=== PATIENT | female | born 1940 | race Caucasian/White ===

== ENCOUNTER 2017-05-29 14:10 | Emergency (ER) | payer MEDICARE ==
--- NOTE | 2017-05-29 16:09 | RAD ---
INDICATION: Left knee pain. Fall. COMPARISON: None TECHNIQUE: AP, lateral, and oblique views were obtained. FINDINGS: The bony structures, joint spaces, and soft tissues are normal for age. IMPRESSION: NO ACUTE BONY FINDINGS.
--- NOTE | 2017-05-29 16:13 | RAD ---
Indication: LEFT knee and ankle pain and edema post fall. Comparison: No relevant prior exams available on the [facility] for comparison. Technique: AP, mortise, and lateral views LEFT ankle. REPORT AND IMPRESSION: Diffuse soft tissue edema most prominent over the lateral malleolus. The ankle mortise is congruent. Negative for fracture.
[2017-05-29 16:17] VITALS: BP 119/66
--- NOTE | 2017-05-29 16:59 | UC ---
Oziel Hawley Tecjoon, scribed for Juve Tran MD on 05/29/17 at 1549 . Lower Extremity/Ankle HPI - HPI Summary HPI Summary: This patient is a 76 year old female presenting to [facility] with a chief complaint of left knee and foot pain s/p a mechanical fall at approx. noon today. Patient states that her legs gave out while she was going down the stairs. Patient states her leg twisted during the fall. Patient denies LOC.Patient states her leg is still load-bearing. Patient denies any loss of function or numbness in extremities. The pain is described as throbbing. The pain is rated 2/10 in severity. Symptoms aggravated by walking. Symptoms alleviated by OTC medication. 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 Patient denies hip pain, head pain, neck pain, back pain. - History of Current Complaint Chief Complaint: UCLowerExtremity Stated Complaint: FOOT AND KNEE INJURY Time Seen by Provider: 05/29/17 15:29 Hx Obtained From: Patient Onset/Duration: Sudden Onset, Lasting Hours - 3, Still Present Severity Initially: Moderate Severity Currently: Mild Pain Intensity: 2 Pain Scale Used: 0-10 Numeric Aggravating Factor(s): Standing, Ambulation Alleviating Factor(s): OTC Meds Able to Bear Weight: Yes Related History: Other - mechanical fall - Allergies/Home Medications Allergies/Adverse Reactions: Allergies Allergy/AdvReac Type Severity Reaction Status Date / Time Kiwi Extract Allergy Swelling Verified 05/29/17 14:30 Of Face,Lips,& Throat Latex Allergy Swelling Verified 05/29/17 14:30 Of Face,Lips,& Throat Shellfish Allergy Allergy See Comment Verified 05/29/17 14:30 Tree Nuts Allergy Swelling Verified 05/29/17 14:30 Of Face,Lips,& Throat Home Medications: Home Medications Ibuprofen [Ibuprofen 200 MG] 2 tab PO Q6HR PRN 05/29/17 [History Confirmed 05/29] Loratadine [Claritin 10 MG CAP] 1 tab PO DAILY 05/29/17 [History Confirmed 05/29] Lovastatin [Altoprev] 10 mg PO DAILY 05/29/17 [History Confirmed 05/29/17] PMH/Surg Hx/FS Hx/Imm Hx Previously Healthy: Yes Endocrine History: Other - negative: diabetes Other Endocrine History: . Cardiovascular History: Other - high cholesterol Other Cardiovascular History: . - Surgical History Surgical History: None - Family History Known Family History: Negative: Hypertension, Diabetes - Social History Alcohol Use: Daily Alcohol Amount: 1 glass wine daily Substance Use Type: None Smoking Status (MU): Never Smoked Tobacco Have You Smoked in the Last Year: No - Immunization History Most Recent Influenza Vaccination: 05/2017 Review of Systems Constitutional: Negative - fever Musculoskeletal: Negative - hip pain, back pain, Calf Tenderness, Other: - left knee, foot pain Neurological: Negative - neck pain, head pain All Other Systems Reviewed And Are Negative: Yes Physical Exam Triage Information Reviewed: Yes Vital Signs: Initial Vital Signs Temp 97.0 F 05/29/17 14:25 Pulse 90 05/29/17 14:25 Resp 16 05/29/17 14:25 BP 120/50 05/29/17 14:25 Pulse Ox 96 05/29/17 14:25 - Additional Comments General: well-appearing, no pain distress Skin: warm, color reflects adequate perfusion, dry Head: normal Eyes: EOMI, VIRAL ENT: normal Neck: supple, nontender Respiratory: CTA, breath sounds present Cardiovascular: RRR Abdomen: soft, nontender Bowel: present Extremities: Left ankle swelling and tenderness to palpation. Also dorsum of foot. Knee has good x-ray. Musculoskeletal: normal, strength/ROM intact Neurological: normal, sensory/motor intact, A&O x3 Psychological: affect/mood appropriate Diagnostics - Radiology Knee XR Xray Interpretation: No Acute Changes - IMPRESSION: NO ACUTE BONY FINDINGS. physician has reviewed this radiology report. Radiology Interpretation Completed By: Radiologist Ankle XR Xray Interpretation: Positive (See Comments) - IMPRESSION: Diffuse soft tissue edema most prominent over the lateral malleolus. The ankle mortise is congruent. Negative for fracture. physician has reviewed this radiology report. Radiology Interpretation Completed By: Radiologist Foot XR Xray Interpretation: No Acute Changes - IMPRESSION: NO ACUTE BONY FINDINGS. physician has reviewed this radiology report. Radiology Interpretation Completed By: Radiologist Lower Extremity Course/Dx - Course Course Of Treatment: NO FXR SEEN ON X-RAY. PAIN/SWELLING IS WORST IN THE MID FOOT. WILL TREAT WITH RICE, BENTON WRAP AND POST OP SHOE. F/U PMD IF NOT COMPLETELY IMPROVED, RETURN IF WORSE. - Differential Dx/Diagnosis Provider Diagnoses: LEFT KNEE, ANKLE AND FOOT STRAIN Discharge - Discharge Plan Condition: Stable Disposition: HOME Patient Education Materials: Ankle Sprain (ED), Knee Sprain (ED), Foot Sprain ( ED) Referrals: Keith Arizmendi MD [Primary Care Provider] - Additional Instructions: FOLLOW UP WITH YOUR DOCTOR. GET RECHECKED FOR ANY WORSENING OF YOUR CONDITION; CONTINUED OR WORSE PAIN OR QUESTIONS OR CONCERNS. The documentation as recorded by the Oziel leach Tecjoon accurately reflects the service I personally performed and the decisions made by , Juve Tran MD.
--- NOTE | 2017-06-02 15:13 | RAD ---
HISTORY: Left foot pain status post fall COMPARISONS: None VIEWS: 3, Frontal, lateral, and oblique views of the left foot, submitted for review on June 02, 2017 FINDINGS: BONE DENSITY: There is diffuse osteopenia. BONES: There is no displaced fracture. JOINTS: There is no arthropathy. ALIGNMENT: There is no dislocation. SOFT TISSUES: Unremarkable. OTHER FINDINGS: None. IMPRESSION: OSTEOPENIA. NO ACUTE OSSEOUS INJURY. IF SYMPTOMS PERSIST, RECOMMEND REPEAT IMAGING.
== END 2017-05-29 17:09 | disposition home or self-care (01) ==
LOC: UCEAST 14:10
DX: S96.912A Strain of unspecified muscle and tendon at ankle and foot level, left foot, initial encounter (principal); M25.562 Pain in left knee; M25.572 Pain in left ankle and joints of left foot; Z91.040 Latex allergy status; Z91.018 Allergy to other foods; Z91.013 Allergy to seafood; E78.00 Pure hypercholesterolemia, unspecified; Z79.899 Other long term (current) drug therapy; W10.9XXA Fall (on) (from) unspecified stairs and steps, initial encounter; Y92.9 Unspecified place or not applicable
CPT/HCPCS: 99213; G0463

== ENCOUNTER 2017-11-12 09:15 | Emergency (ER) | payer MEDICARE ==
[2017-11-12 09:27] VITALS: BP 108/57
--- NOTE | 2017-11-12 10:30 | UC ---
Edward Hawley Tenzin, scribed for Juve Tran MD on 11/12/17 at 0950 . Abdominal Pain Female HPI - HPI Summary HPI Summary: Pt is a 77 years old female presenting to the complaining of intense pain in her epigastrium this morning after having her breakfast. Pt rates the pain at 9/ 10 in severity during the onset. Currently at the she reports the pain is at 4/10 in severity and describes that the pain is diffuse around her abdomen. Pt reports that the epigastrium pain exacerbated after she took her dogs out to the garden. She noted that she experience diaphoresis, felt nauseous as if she is about to vomit, but did not vomit. She noted that she laid down and rested. Pt denies abnormal bowl movements, dysuria and blood in stools. She added she did notice that her bowl movements yesterday was loose. - History of Current Complaint Chief Complaint: UCAbdominalPain Stated Complaint: ABD PAIN Time Seen by Provider: 11/12/17 09:37 Hx Obtained From: Patient Onset/Duration: Still Present Severity Initially: Severe Severity Currently: Mild Pain Intensity: 1 Location: Epigastric Radiates: No Aggravating Factor(s): Nothing Alleviating Factor(s): Nothing Associated Signs and Symptoms: Positive: Diaphoresis, Nausea. Negative: Blood in Stool, Vomiting, Diarrhea Allergies/Adverse Reactions: Allergies Allergy/AdvReac Type Severity Reaction Status Date / Time kiwi Allergy Swelling Verified 11/12/17 09:28 Of Face,Lips,& Throat latex Allergy Swelling Verified 11/12/17 09:28 Of Face,Lips,& Throat shellfish derived Allergy See Comment Verified 11/12/17 09:28 Tree Nuts Allergy Swelling Verified 11/12/17 09:28 Of Face,Lips,& Throat PMH/Surg Hx/FS Hx/Imm Hx - Additional Past Medical History Additional PMH: NEGATIVE: CVA, AR - Surgical History Surgical History: None - Family History Known Family History: Negative: Hypertension, Diabetes - Social History Alcohol Use: Daily Alcohol Amount: 1 glass wine daily Substance Use Type: None Smoking Status (MU): Former Smoker Have You Smoked in the Last Year: No When Did the Patient Quit Smoking/Using Tobacco: in her late 20's - Immunization History Most Recent Influenza Vaccination: 05/2017 Review of Systems Constitutional: Other - diaphoresis Skin: Negative Eyes: Negative ENT: Negative Respiratory: Negative Cardiovascular: Negative Gastrointestinal: Abdominal Pain, Nausea Genitourinary: Negative Motor: Negative Neurovascular: Negative Musculoskeletal: Negative Neurological: Negative Psychological: Negative All Other Systems Reviewed And Are Negative: Yes - Comments Additional Review of Systems Comments: POSITIVE: EPIGASTRIUM PAIN, NAUSEOUS, DIAPHORESIS DENIES: VOMITING, DIARRHEA, DYSURIA, BLOOD IN STOOLS, ABNORMAL BOWEL MOVEMENTS Physical Exam - Summary Physical Exam Summary: General: well-appearing, mild and moderate distress Skin: warm, color reflects adequate perfusion, dry Head: normal Eyes: EOMI, VIRAL ENT: normal Neck: supple, nontender Respiratory: CTA, breath sounds present Cardiovascular: RRR Abdomen: Mild tenderness in epigastrium, Mild tympany in percussion Bowel: present Musculoskeletal: normal, strength/ROM intact Neurological: sensory/motor intact, A&O x3 Psychological: affect/mood appropriate Triage Information Reviewed: Yes Vital Signs: Initial Vital Signs Temp 97.0 F 11/12/17 09:22 Pulse 66 11/12/17 09:22 Resp 16 11/12/17 09:22 BP 108/57 11/12/17 09:22 Pulse Ox 98 11/12/17 09:22 Vital Signs Reviewed: Yes Abd Pain Female Course/Dx - Course Course Of Treatment: DISCUSSED NEED FOR TIMELY LABS DUE TO ACTIVE ABDOMINAL PAIN. PATIENT DENIES CHEST PAIN. PATIENT DECLINES AMBULANCE TRANSPORT; HER DAUGHTER WILL DRIVE HER TO THE ED. - Differential Dx/Diagnosis Provider Diagnoses: ABDOMINAL PAIN Discharge - Sign-Out/Discharge Documenting (check all that apply): Discharge/Admit/Transfer - Discharge Plan Condition: Stable Disposition: HOME Patient Education Materials: Acute Abdominal Pain (ED) Referrals: Keith Arizmendi MD [Primary Care Provider] - Additional Instructions: GO DIRECTLY TO THE EMERGENCY DEPARTMENT FOR FURTHER EVALUATION OF YOUR ABDOMINAL PAIN. - Billing Disposition and Condition Condition: STABLE Disposition: Home The documentation as recorded by the Edward leach Tenzin accurately reflects the service I personally performed and the decisions made by me, Juve Tran MD.
== END 2017-11-12 10:00 | disposition home or self-care (01) ==
LOC: UCEAST 09:15
DX: R10.13 Epigastric pain (principal); R61 Generalized hyperhidrosis; R11.0 Nausea; Z91.018 Allergy to other foods; Z91.040 Latex allergy status; Z87.891 Personal history of nicotine dependence
CPT/HCPCS: 99212; G0463

== ENCOUNTER 2017-11-12 10:22 | Inpatient (IN) | payer MEDICARE ==
[2017-11-12] MEDS ORDERED: NS 0.9% 1000 ML* 1,000 ML IV ONE (10:51)
[2017-11-12 11:13] LABS: ABS Basophils 0 10^3/ul (0-0.2); ABS Eosinophils 0.1 10^3/ul (0-0.6); ABS Lymphocytes 0.8 10^3/ul (1.0-4.8); ABS Monocytes 0.5 10^3/ul (0-0.8); ABS Nucleated RBC 0 10^3/ul; Eosinophil % 0.9 % (0-6); Hematocrit 38 % (35-47); Hemoglobin 13.2 g/dl (12.0-16.0); Lymphocyte % 9.5 % (25-47); Mean Corpuscular HGB Conc 35 g/dl (31-36); Mean Corpuscular Hemoglobin 34 pg (27-31); Mean Corpuscular Volume 98 fL (80-97); Mean Platelet Volume 7.7 um3 (7.4-10.4); Nucleated Red Blood Cells % 0; Platelet Count 219 10^3/ul (150-450); Red Blood Count 3.85 10^6/ul (4.00-5.40); Red Cell Distribution Width 13 % (10.5-15); White Blood Count 8.4 10^3/ul (3.5-10.8)
[2017-11-12 11:25] LABS: INR 0.96 (0.77-1.02)
[2017-11-12 11:32] LABS: EGFR Non-African American 66.5 (>60)
--- NOTE | 2017-11-12 11:48 | RAD ---
Indication: Intense abdominal pain this morning. Comparison: No relevant prior exams available on the [facility] for comparison. Technique: RIGHT upper quadrant ultrasound. Report: Appropriate direction flow documented in the portal and hepatic veins. 13.8 cm liver is normal in echogenicity. 0.8 x 0.7 x 0.9 cm well-circumscribed LEFT hepatic lobe cyst with lobular contour and minimal thin internal septation without concern. Negative for intrahepatic biliary dilatation. 1.7 mm common bile duct. Adequately distended gallbladder with 2 mm wall is remarkable for multiple small nonshadowing polypoid nodules along the wall measuring up to 0.5 cm maximum dimension. Negative for pericholecystic fluid or sonographic Loving's sign. Unremarkable well visualized pancreas. Negative for ascites. 10.2 x 3.9 x 4.3 cm RIGHT kidney is unremarkable. IMPRESSION: #. 0.5 cm maximum dimension probable cholesterol or inflammatory polyps. Gallbladder polyps 0.6 cm or smaller have extremely low risk of malignancy and typically do not warrant follow up. On occasion polyps may actually represent small gallstones adherent to the gallbladder wall at surgery.
--- NOTE | 2017-11-12 12:29 | RAD ---
INDICATION: Epigastric pain. COMPARISON: April 23, 2000 TECHNIQUE: Dual energy PA and routine lateral views of the chest were obtained. REPORT: Elevated lung volumes and mild prominence of interstitial markings without change. No focal pulmonary lesion, compelling alveolar consolidation, pleural effusion, pneumothorax. The heart, pulmonary vasculature, and mediastinal contours are unremarkable. Negative for free air beneath the diaphragm. IMPRESSION: Stigmata of obstructive lung disease. No acute pulmonary or cardiac process evident.
[2017-11-12 13:04] LABS: Urine Appearance Clear; Urine Blood Negative (Negative); Urine Color Straw; Urine Ketones Negative (Negative); Urine Protein Negative (Negative); Urine Specific Gravity 1.004 (1.010-1.030); Urine Urobilinogen Negative (Negative)
[2017-11-12] MEDS ORDERED: Iohexol 300* (CONTRAST) 10 ML SDV IV ONE (13:58)
--- NOTE | 2017-11-12 14:33 | RAD ---
INDICATION: Abdominal pain/appendicitis COMPARISON: Gallbladder sonogram same date TECHNIQUE: Axial source images were obtained from the hemidiaphragms to the symphysis pubis following administration of oral and intravenous contrast. 97 mL Omnipaque 300 was utilized. Coronal and sagittal reconstructed images were acquired. Lung bases: There is minor dependent atelectasis in the lung bases. Liver: The liver is normal in size. There are multiple subcentimeter hypodense right and left hepatic lobe lesions which are likely incidental cysts or hemangiomas. The earlier ultrasound reported a left hepatic cyst. There is no ductal dilatation. Gallbladder: There are no calcified gallstones. There is no evidence of wall thickening or pericholecystic fluid. May be mild hyperemia of the wall. There are presumed tiny polyps or adherent stones as also suggested at the time of the gallbladder sonography. Spleen: The spleen is normal in size. There are no masses. Pancreas: There is no focal pancreatic mass or ductal dilatation. Adrenal glands: There is no evidence of adrenal mass. Kidneys: The kidneys are normal in size and position. There are prompt nephrograms and there is prompt excretion bilaterally. There are no renal parenchymal masses. There is no evidence of nephrolithiasis. Adenopathy: There is no evidence of adenopathy by size criteria. Fluid collections: There are no free or localized fluid collections. Vessels:There are no significant atherosclerotic changes involving the aorta. There is no focal aneurysm. The iliac vessels are normal in caliber. The IVC appears normal. GI tract: There are no acute CT bowel findings. There is no obstruction. The stomach and small bowel appear normal. There are scattered diverticula of the sigmoid colon without CT findings of acute diverticulitis The cecum, ileocecal valve, and terminal ileum appear normal. The appendix is visualized and appear normal. Pelvic organs: The uterus and adnexa appear normal Bladder: There are no bladder masses. Abdominal and pelvic soft tissues: The extraperitoneal abdominal and pelvic soft tissues appear normal.. Osseous structures: There are no acute osseous findings. There is a scoliotic deformity. There is advanced degenerative disc disease about L2-L3 and L4-L5 with moderate degenerative disc disease at L3-L4 and L5-S1 Other: None IMPRESSION: 1. NO ACUTE CT FINDINGS. NO MASS OR INFLAMMATORY CHANGES. NORMAL APPENDIX. 2. PROBABLE HEPATIC CYSTS OR HEMANGIOMAS. 3. PROBABLE GALLBLADDER POLYPS. 4. SCATTERED DIVERTICULA WITHOUT CT FINDINGS OF ACUTE DIVERTICULITIS
--- NOTE | 2017-11-12 15:07 | ED ---
Maday Hawley Emily, scribed for Ciara Calabreseanuel on 11/12/17 at 1053 . Abdominal Pain/Female - HPI Summary HPI Summary: This patient is a 77 year old F presenting to [facility] accompanied by daughter with a chief complaint of intermittent upper abd pain after eating breakfast this morning. The patient rates the pain 1/10 in severity. Symptoms aggravated by nothing. Symptoms alleviated by nothing. Patient reports skin diaphoresis and nausea. Patient denies vomiting and CP. - History of Current Complaint Chief Complaint: EDAbdPain Stated Complaint: ABD PAIN-SENT FROM Time Seen by Provider: 11/12/17 10:43 Hx Obtained From: Patient ?: No Onset/Duration: Sudden Onset, Lasting Hours, Still Present Timing: Frequency Of Episodes - Hours Severity Initially: Severe Severity Currently: Mild Pain Intensity: 1 Pain Scale Used: 0-10 Numeric Location: Other - Upper abdomen Radiates: No Aggravating Factor(s): Nothing Alleviating Factor(s): Nothing Associated Signs and Symptoms: Positive: Other: - Positive skin diaphoresis and nausea. Negative vomiting and CP. Allergies/Adverse Reactions: Allergies Allergy/AdvReac Type Severity Reaction Status Date / Time kiwi Allergy Swelling Verified 11/12/17 09:28 Of Face,Lips,& Throat latex Allergy Swelling Verified 11/12/17 09:28 Of Face,Lips,& Throat shellfish derived Allergy See Comment Verified 11/12/17 09:28 Tree Nuts Allergy Swelling Verified 11/12/17 09:28 Of Face,Lips,& Throat Home Medications: Home Medications Calcium Carbonate [Calcium] 500 mg PO DAILY 11/12/17 [History Confirmed 11/12/17 ] Cholecalciferol TAB* [Vitamin D TAB*] 1,000 unit PO DAILY 11/12/17 [History Confirmed 11/12/17] Desloratidine (NF) [Clarinex (NF)] 5 mg PO QAM 11/12/17 [History Confirmed 11/12] Garlic [Sm Garlic] 1 tab PO DAILY 11/12/17 [History Confirmed 11/12/17] Lovastatin(NF) [Mevacor(NF)] 20 mg PO QPM 11/12/17 [History Confirmed 11/12/17] Vitamin E CAP* 200 unit PO DAILY 11/12/17 [History Confirmed 11/12/17] PMH/Surg Hx/FS Hx/Imm Hx Previously Healthy: Yes Opthamlomology History: Denies: Hx Legally Blind EENT History: Denies: Hx Deafness Infectious Disease History: No Infectious Disease History: Denies: Traveled Outside the [place] in Last 30 Days - Family History Known Family History: Negative: Hypertension, Diabetes - Social History Occupation: Employed Part-time Lives: Alone Alcohol Use: Daily Alcohol Amount: 1 glass wine daily Hx Substance Use: No Substance Use Type: Reports: None Hx Tobacco Use: Yes Smoking Status (MU): Former Smoker Have You Smoked in the Last Year: No Review of Systems Positive: Skin Diaphoresis Negative: Chest Pain Positive: Abdominal Pain, Nausea. Negative: Vomiting All Other Systems Reviewed And Are Negative: Yes Physical Exam - Summary Physical Exam Summary: Appearance: Well appearing, no pain distress Skin: warm, dry, reflects adequate perfusion Head/face: normal Eyes: EOMI, VIRAL ENT: normal Neck: supple, non-tender Respiratory: CTA, breath sounds present Cardiovascular: RRR, pulses symmetrical Abdomen: RUQ tenderness, Bowel: present Musculoskeletal: normal, strength/ROM intact Neuro: normal, sensory motor intact, A&Ox3 Triage Information Reviewed: Yes Vital Signs On Initial Exam: Initial Vitals Temp Pulse Resp BP Pulse Ox 98 F 66 16 117/59 97 11/12/17 10:34 11/12/17 10:34 11/12/17 10:34 11/12/17 10:34 11/12/17 10:34 Vital Signs Reviewed: Yes Diagnostics - Vital Signs Vital Signs Temp Pulse Resp BP Pulse Ox 11/12/17 10:34 98 F 66 16 117/59 97 - Laboratory Lab Results: Lab Results 11/12/17 11/12/17 11/12/17 Range/Units 11:03 11:03 11:03 WBC 8.4 (3.5-10.8) 10^3/ul RBC 3.85 L (4.00-5.40) 10^6/ul Hgb 13.2 (12.0-16.0) g/dl Hct 38 (35-47) % MCV 98 H (80-97) fL MCH 34 H (27-31) pg MCHC 35 (31-36) g/dl RDW 13 (10.5-15) % Plt Count 219 (150-450) 10^3/ul MPV 7.7 (7.4-10.4) um3 Neut % (Auto) 82.7 (38-83) % Lymph % (Auto) 9.5 L (25-47) % [place] % (Auto) 6.4 (0-7) % Eos % (Auto) 0.9 (0-6) % Baso % (Auto) 0.5 (0-2) % Absolute Neuts (auto) 7.0 (1.5-7.7) 10^3/ul Absolute Lymphs (auto) 0.8 L (1.0-4.8) 10^3/ul Absolute Monos (auto) 0.5 (0-0.8) 10^3/ul Absolute Eos (auto) 0.1 (0-0.6) 10^3/ul Absolute Basos (auto) 0 (0-0.2) 10^3/ul Absolute Nucleated RBC 0 10^3/ul Nucleated RBC % 0 INR (Anticoag Therapy) 0.96 (0.77-1.02) APTT 25.2 L (26.0-36.3) seconds Sodium 140 (135-145) mmol/L Potassium 3.9 (3.5-5.0) mmol/L Chloride 105 (101-111) mmol/L Carbon Dioxide 29 (22-32) mmol/L Anion Gap 6 (2-11) mmol/L BUN 20 (6-24) mg/dL Creatinine 0.83 (0.51-0.95) mg/dL Est GFR ( Amer) 80.4 (>60) Est GFR (Non-Af Amer) 66.5 (>60) BUN/Creatinine Ratio 24.1 H (8-20) Glucose 107 H (70-100) mg/dL Calcium 9.5 (8.6-10.3) mg/dL Total Bilirubin 0.70 (0.2-1.0) mg/dL AST 24 (13-39) U/L ALT 19 (7-52) U/L Alkaline Phosphatase 44 (34-104) U/L Troponin I 0.00 (<0.04) ng/mL Total Protein 6.4 (6.4-8.9) g/dL Albumin 4.0 (3.2-5.2) g/dL Globulin 2.4 (2-4) g/dL Albumin/Globulin Ratio 1.7 (1-3) Lipase 8940 H (11.0-82.0) U/L Urine Color Urine Appearance Urine pH (5-9) Ur Specific [place] (1.010-1.030) Urine Protein (Negative) Urine Ketones (Negative) Urine Blood (Negative) Urine Nitrate (Negative) Urine Bilirubin (Negative) Urine Urobilinogen (Negative) Ur Leukocyte Esterase (Negative) Urine Glucose (Negative) 11/12/17 Range/Units 12:46 WBC (3.5-10.8) 10^3/ul RBC (4.00-5.40) 10^6/ul Hgb (12.0-16.0) g/dl Hct (35-47) % MCV (80-97) fL MCH (27-31) pg MCHC (31-36) g/dl RDW (10.5-15) % Plt Count (150-450) 10^3/ul MPV (7.4-10.4) um3 Neut % (Auto) (38-83) % Lymph % (Auto) (25-47) % [place] % (Auto) (0-7) % Eos % (Auto) (0-6) % Baso % (Auto) (0-2) % Absolute Neuts (auto) (1.5-7.7) 10^3/ul Absolute Lymphs (auto) (1.0-4.8) 10^3/ul Absolute Monos (auto) (0-0.8) 10^3/ul Absolute Eos (auto) (0-0.6) 10^3/ul Absolute Basos (auto) (0-0.2) 10^3/ul Absolute Nucleated RBC 10^3/ul Nucleated RBC % INR (Anticoag Therapy) (0.77-1.02) APTT (26.0-36.3) seconds Sodium (135-145) mmol/L Potassium (3.5-5.0) mmol/L Chloride (101-111) mmol/L Carbon Dioxide (22-32) mmol/L Anion Gap (2-11) mmol/L BUN (6-24) mg/dL Creatinine (0.51-0.95) mg/dL Est GFR ( Amer) (>60) Est GFR (Non-Af Amer) (>60) BUN/Creatinine Ratio (8-20) Glucose (70-100) mg/dL Calcium (8.6-10.3) mg/dL Total Bilirubin (0.2-1.0) mg/dL AST (13-39) U/L ALT (7-52) U/L Alkaline Phosphatase (34-104) U/L Troponin I (<0.04) ng/mL Total Protein (6.4-8.9) g/dL Albumin (3.2-5.2) g/dL Globulin (2-4) g/dL Albumin/Globulin Ratio (1-3) Lipase (11.0-82.0) U/L Urine Color Straw Urine Appearance Clear Urine pH 8.0 (5-9) Ur Specific [place] 1.004 L (1.010-1.030) Urine Protein Negative (Negative) Urine Ketones Negative (Negative) Urine Blood Negative (Negative) Urine Nitrate Negative (Negative) Urine Bilirubin Negative (Negative) Urine Urobilinogen Negative (Negative) Ur Leukocyte Esterase Negative (Negative) Urine Glucose Negative (Negative) Result Diagrams: 11/12/17 11:03 11/12/17 11:03 Lab Statement: Any lab studies that have been ordered have been reviewed, and results considered in the medical decision making process. - Radiology CXR Radiology Interpretation Completed By: Radiologist - CXR reveals, per radiologist, stigmata of obstructive lung disease. No acute pulmonary or cardiac process evident. ED physician has reviewed this radiology report. - CT CT Abdomen/Pelvis CT Interpretation Completed By: Radiologist - CT abdomen/pelvis reveals, per radiologist, 1. NO ACUTE CT FINDINGS. NO MASS OR INFLAMMATORY CHANGES. NORMAL APPENDIX. 2. PROBABLE HEPATIC CYSTS OR HEMANGIOMAS. 3. PROBABLE GALLBLADDER POLYPS. 4. SCATTERED DIVERTICULA WITHOUT CT FINDINGS OF ACUTE DIVERTICULITIS. ED physician has reviewed this radiology report. - EKG 1056 Cardiac Rate: NL EKG Rhythm: Sinus Rhythm - [address] Segment: Normal Ectopy: None EKG Interpretation: No acute changes - Additional Comments Diagnostic Additional Comments: Gallbladder US reveals, per radiologist, 0.5 cm maximum dimension probable cholesterol or inflammatory polyps. Gallbladder polyps 0.6 cm or smaller have extremely low risk of malignancy and typically do not warrant follow up. On occasion polyps may actually represent small gallstones adherent to the gallbladder wall at surgery. ED physician has reviewed this radiology report. Re-Evaluation - Re-Evaluation First Eval Re-Evaluation Time: 12:05 Change: Unchanged Comment: Discussed results and plan of care with pt Second Eval Re-Evaluation Time: 14:44 Change: Unchanged Comment: Discussed results with pt Abdominal Pain Fem Course/Dx - Course Course Of Treatment: This patient is a 77 year old F presenting to [facility] accompanied by daughter with a chief complaint of intermittent upper abd pain after eating breakfast this morning. Physical Exam Findings: Tenderness RUQ. Gallbladder US reveals, per radiologist, 0.5 cm maximum dimension probable cholesterol or inflammatory polyps. Gallbladder polyps 0.6 cm or smaller have extremely low risk of malignancy and typically do not warrant follow up. On occasion polyps may actually represent small gallstones adherent to the gallbladder wall at surgery. CXR reveals, per radiologist, stigmata of obstructive lung disease. No acute pulmonary or cardiac process evident. CT abdomen/pelvis reveals, per radiologist, 1. NO ACUTE CT FINDINGS. NO MASS OR INFLAMMATORY CHANGES. NORMAL APPENDIX. 2. PROBABLE HEPATIC CYSTS OR HEMANGIOMAS. 3. PROBABLE GALLBLADDER POLYPS. 4. SCATTERED DIVERTICULA WITHOUT CT FINDINGS OF ACUTE DIVERTICULITIS. Blood work and UA obtained. ED course the patient was given fluids. Consult with Dr. Herrera (hospitalist) at 1446. He agrees to admit pt for further evaluation. The patient is agreeable with this plan. - Diagnoses Differential Diagnosis: Positive: Appendicitis, Diverticulitis, Gall Bladder Disease, Hepatitis, NM, Pancreatitis, Peptic Ulcer Disease, Renal Colic, Urinary Tract Infection Provider Diagnoses: Abdominal pain, Pancreatitis - Provider Notifications Discussed Care Of Patient With: Jorge Luis Herrera Time Discussed With Above Provider: 14:46 Instructed by Provider To: MD Will See In ED - Consult with Dr. Herrera ( hospitalist) at 1446. He agrees to admit pt for further evaluation. Discharge - Sign-Out/Discharge Documenting (check all that apply): Discharge/Admit/Transfer - Admit - Discharge Plan Condition: Stable Disposition: ADMITTED TO [facility] - Billing Disposition and Condition Condition: STABLE Disposition: Admitted to [facility] The documentation as recorded by the Maday leach Emily accurately reflects the service I personally performed and the decisions made by , Alcon Calabrese.
[2017-11-12] MEDS ORDERED: Al Hydrox/Mg Hydrox/Simet LIQ* 30 ML UDC PO PRN (15:42)
[2017-11-12] MEDS ORDERED: Ondansetron INJ* 2 MG/ML VIAL IV PRN (15:42)
[2017-11-12] MEDS ORDERED: Magnesium Hydroxide LIQ* 30 ML UDC PO PRN (15:42)
[2017-11-12] MEDS ORDERED: Morphine VIAL* 4 MG/ML VIAL (1 ml vial) IV PRN (15:42)
[2017-11-12] MEDS ORDERED: Albuterol 2.5 MG/3 ML NEB.SOL* (0.083%) INH PRN (15:42)
[2017-11-12] MEDS ORDERED: oxyCODONE/Acetamin 5/325 MG* TAB PO PRN (15:42)
[2017-11-12] MEDS: NS 0.9% 1000 ML* 1,000 ML IV SCH (17:33)
[2017-11-12] MEDS: LOVASTATIN 10 MG PO SCH (17:58)
--- NOTE | 2017-11-12 19:47 | HP ---
AMENDED REPORT NOW INCLUDES COSIGNER DESIGNATION - ESIGNED BEFORE ADJUSTMENT CC: Dr. Keith Arizmendi; Dr. Juan Carlos Brambila* ADMISSION HISTORY AND PHYSICAL: DATE OF ADMISSION: 11/12/17 PATIENT OF ATTENDING HOSPITALIST: Trent Herrera MD* (DICTATED BY ROSETTE JIMENES) PRIMARY CARE PHYSICIAN: Dr. Keith Arizmendi. CHIEF COMPLAINT: Abdominal pain. HISTORY OF PRESENT ILLNESS: Mrs. Talbert is a 77-year-old female who carries past medical history significant only for seasonal allergies and hyperlipidemia, who presented to the emergency room today with acute onset of epigastric pain that started this morning. The patient was having breakfast at home when she suddenly experienced some epigastric pain, she rated up to 8/10 in severity, localized to the epigastric and right upper quadrant area with radiation to her back. She reported associated nausea, but denies any vomiting , fever, changes in bowel habits, jaundice or changes in the color of stool or urine. She has never had any similar complaints in the past. She has been never evaluated for any history of gastritis, acid reflux disease or gallbladder disease. She is otherwise relatively healthy older female with no significant past medical history for cardiac disease, hypertension, stroke or diabetes mellitus. She was evaluated in the emergency room and had laboratory workup that revealed normal white count and had a chemistry panel that revealed significantly elevated lipase with value of 8940. She had subsequent ultrasound of the gallbladder that revealed evidence of gallstone, possible gallbladder polyp, but there was no evidence of cholecystitis or common bile duct dilatation. She had subsequent abdominal CT scan that revealed evidence consistent with again cholelithiasis without evidence of cholecystitis or pancreatitis. There were also questionable gallbladder polyps, which could represent cholelithiasis as well. The patient was evaluated and we were asked to see her to consider admission for observation as well as for GI consultation regarding probable gallstone pancreatitis. At the time of admission, she is feeling better. She denies any significant pain or nausea at this time. She denies any chest pain, palpitation, fever, chills, headache, dizziness or syncope. PAST MEDICAL HISTORY: Significant for: 1. Hyperlipidemia. 2. Seasonal allergies. She denies any history of hypertension, diabetes, kidney disease or stroke. PAST SURGICAL HISTORY: Significant for right toe pinning due to anatomical variation and not due to injury and that was years ago. CURRENT MEDICATIONS: Her medications at home include: 1. Calcium carbonate 500 mg p.o. daily. 2. Vitamin D tablets 1000 units p.o. daily. 3. Clarinex 5 mg p.o. q.a.m. 4. Garlic 1 tablet p.o. daily. 5. Lovastatin 20 mg p.o. q.h.s. 6. Vitamin E caps 200 units p.o. daily. ALLERGIES: Include KIWI, LATEX, SHELLFISH, and TREE NUTS; however, I do not see any known medicine allergies. FAMILY HISTORY: She denies any family history of gallbladder malignancies or colorectal malignancies. SOCIAL HISTORY: The patient is a nonsmoker who denies alcohol intake. She is retired and she has a very active lifestyle. She is and her carries healthcare proxy. REVIEW OF SYSTEMS: See HPI. Otherwise, 14 points review of systems were evaluated and they were essentially negative. PHYSICAL EXAMINATION GENERAL: She is a pleasant, healthy-appearing older female, appears younger than stated age and in no acute distress or discomfort at the time of admission. VITAL SIGNS: Reveal temperature of 97.1, pulse of 71, blood pressure of 121/75 , respirations of 16, and O2 sat of 97% on room air. HEENT: Head is normocephalic, atraumatic. Sclerae anicteric. PERRLA. EOMs intact. Oropharynx is pink and moist. NECK: Supple. Trachea midline. No cervical adenopathy, thyromegaly or JVD. LUNGS: Clear to auscultation bilaterally. HEART: Regular rate and rhythm. Normal S1 and S2 without rubs, murmurs or gallops. BACK: With normal curvature and no CVA tenderness. ABDOMEN: Soft and nondistended. There is [id number] epigastric and right upper quadrant tenderness on palpation with some guarding, but no rigidity or rebound tenderness. There are no hernias, masses or hepatosplenomegaly. There is no tympany or signs of acute abdomen. Loving's sign was positive. EXTREMITIES: Without cyanosis, clubbing or edema. NEUROLOGIC: Grossly intact. RECTAL: Exam deferred at this time. LABORATORY WORKUP: CBC with white count of 8400, hemoglobin 13.2, hematocrit 38 and platelets of 219. Her chemistry panel with sodium of 140, potassium 3.9 , chloride 105, CO2 of 29, BUN of 20, and creatinine of 0.8. Her glucose is 107. LFTs within normal limits. Lipase elevated with value of 8940. Urinalysis was essentially normal and INR is 0.06. ACCESSORY DIAGNOSTIC DATA: As mentioned above, chest x-ray with no acute findings. EKG with no ST changes or evidence of ischemia. Gallbladder ultrasound with probable gallbladder polyps versus stones and no evidence of cholecystitis or CBD dilatation. An abdominopelvic CT scan confirmed these findings with no evidence of pancreatitis or CBD dilatation at this time. IMPRESSION: A 77-year-old female who has past medical history significant for hyperlipidemia and seasonal allergies, who presented to the emergency room earlier this morning with acute onset of epigastric pain, who had laboratory workup revealing significantly elevated lipase combined with CT scan of the abdomen and pelvis consistent with probable gallstone pancreatitis. ASSESSMENT AND PLAN: 1. Gallstone pancreatitis. The patient will be admitted for pain control, IV fluid hydration and GI consultation. Dr. Herrera has already contacted Dr. Brambila, who agreed to see the patient. Recommendations from GI consult are pending at this time. Based on imaging studies, we anticipate that the patient had already passed her gallbladder stone via the common bile duct and we will predict her lipase to trend down starting tonight. She does not appear jaundiced and her LFTs are normalizing. I will discuss with Dr. Brambila if MRCP would be indicated at this time and I also discussed with the patient possibility for elective cholecystectomy to be performed on a later date to avoid future incidence like this. 2. Hyperlipidemia. We will continue her statin. 3. Seasonal allergies. We will continue her Claritin. 4. DVT prophylaxis. Just based on her age, she is a high risk and will be covered with subcu heparin q.8 hours. 5. Code status. She is a full code. 6. Disposition. Admit to medical floor for pain control, IV fluid hydration and GI consultation regarding her gallstone pancreatitis. TIME SPENT: Approximately 60 minutes spent admitting this patient with greater than 50% on taking history and performing physical exam. I have discussed the case with Dr. Herrera, who agreed to plan of care. ROSETTE JIMENES [id number]/[facility] #: [id number] MARIA ISABEL
--- NOTE | 2017-11-12 20:53 | CONS ---
GASTROENTEROLOGY CONSULT: DATE: 11/12/17 CONSULTING PHYSICIAN: Trent Herrera. REASON FOR CONSULTATION: Abrupt abdominal pain and elevated lipase with normal LFTs. HISTORY: This 77-year-old woman this morning after breakfast suddenly developed upper abdominal pain. It was severe, symmetric, there was some radiation to the back. She felt nauseated, but did not actually vomit. She was sweaty and short of breath. She went to [facility] and was transported to the ER. She remained afebrile. In the ER, her white count was normal. LFTs normal, but lipase 8000. CT scan and right upper quadrant ultrasound both showed small nodules adherent to the wall of the gallbladder, but no clear-cut floating or calcified gallstones. Biliary system was not dilated. She has never had anything like this before. She has generally been in excellent health with her last night in the hospital 45 years ago when she had her son. PAST MEDICAL HISTORY: 1. 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 She also returned on a flight from [place] 20 years ago where there was apparently an active TB case. 2. Mild asthma. 3. Dyslipidemia - she takes Mevacor. SOCIAL HISTORY: She is and has a son and daughter. The daughter was a dancer, lives with her. Her former was a researcher at [employer] in gestational toxicology. She is from [place] originally and worked as a center medical and lab director at [employer]. REVIEW OF SYSTEMS: There is no CVA, TIA, seizures, NV, valvular disease, hepatitis, jaundice. She has had 2 colonoscopies, 2004 and 2010, with negative results. 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 HEENT exam is unremarkable. She has no adenopathy. Her lungs are clear. Heart sounds are normal. The abdomen is symmetric, silent, soft, and there was widespread deep tenderness. Extremities showed no edema. IMPRESSION: This 77-year-old woman presents with pancreatitis that has a thunderclap-like pattern, probably from passing a small gallstone. The nodules on the GB wall are likely small stones. It is a little unusual that her LFTs are totally normal though that would most likely predict a good prognosis. Following her LFTs will be indicated. An MRCP will help with her surgical consult. [id number]/[facility] #: [id number] [facility]
[2017-11-12] MEDS: Heparin VIAL(*) 5000 UNITS/ML VIAL (FIVE THOUSAND) SUBCUT SCH (22:19)
[2017-11-13] MEDS: NS 0.9% 1000 ML* 1,000 ML IV SCH ×2 (03:17→19:55)
[2017-11-13] MEDS: Acetaminophen TAB* 325 MG PO PRN ×4 (05:37→19:54)
[2017-11-13] MEDS: Heparin VIAL(*) 5000 UNITS/ML VIAL (FIVE THOUSAND) SUBCUT SCH ×3 (05:37→20:41)
[2017-11-13 07:00] LABS: ABS Basophils 0 10^3/ul (0-0.2); ABS Eosinophils 0.1 10^3/ul (0-0.6); ABS Lymphocytes 1.3 10^3/ul (1.0-4.8); ABS Monocytes 0.4 10^3/ul (0-0.8); ABS Nucleated RBC 0 10^3/ul; Eosinophil % 2.4 % (0-6); Hematocrit 36 % (35-47); Hemoglobin 12.4 g/dl (12.0-16.0); Lymphocyte % 26.6 % (25-47); Mean Corpuscular HGB Conc 35 g/dl (31-36); Mean Corpuscular Hemoglobin 34 pg (27-31); Mean Corpuscular Volume 98 fL (80-97); Mean Platelet Volume 7.5 um3 (7.4-10.4); Nucleated Red Blood Cells % 0.1; Platelet Count 206 10^3/ul (150-450); Red Blood Count 3.66 10^6/ul (4.00-5.40); Red Cell Distribution Width 13 % (10.5-15); White Blood Count 4.8 10^3/ul (3.5-10.8)
[2017-11-13 07:25] LABS: EGFR Non-African American 79.6 (>60)
[2017-11-13] MEDS: Cetirizine* 10 MG TAB PO SCH (08:30)
--- NOTE | 2017-11-13 13:10 | RAD ---
Indication: Abdominal pain. Pancreatitis. Comparison: November 12, 2017 CT and ultrasound. Technique: MYOSa 1.5 Renuka [id number] with GEM suite. Noncontrast magnetic resonance cholangiopancreatography. Report: Distended gallbladder with normal wall thickness. Trace pericholecystic fluid. Negative for intra or extrahepatic biliary dilatation. No compelling filling defects are identified within the common bile duct to indicate ductal stones. Negative for pancreatic duct dilatation. Suggestion of mild peripancreatic edema inferior to the pancreatic body tail junction. No loculated peripancreatic fluid collection evident. A few sharply circumscribed T2 hyperintense hepatic lesions are noted measuring up to 1 cm maximum dimension most consistent with benign cysts. No visualized lymphadenopathy. IMPRESSION: #. Negative for biliary dilatation or biliary duct stones. #. Distended gallbladder without visualized, or wall thickening. Trace pericholecystic fluid. #. Suggestion of mild peripancreatic edema inferior to the pancreatic body tail junction may reflect mild acute pancreatitis. No loculated peripancreatic fluid collection evident.
--- NOTE | 2017-11-13 17:17 | PN ---
Subjective Date of Service: 11/13/17 Interval History: Pain resolved this AM MRCP without biliary obstruction Advanced diet this afternoon and tolerated but did develop minimal pain Objective Active Medications: Acetaminophen (Tylenol Tab*) 650 mg PO Q4H PRN PRN Reason: FEVER/PAIN Last Admin: 11/13/17 15:45 Dose: 650 mg Al Hydrox/Mg Hydrox/Simethicone (Maalox Plus*) 30 ml PO Q6H PRN PRN Reason: INDIGESTION Albuterol (Ventolin 2.5 Mg/3 Ml Neb.Lillie*) 2.5 mg INH [id number] AWAKE PRN PRN Reason: sob/wheezing Cetirizine HCl (Zyrtec*) 10 mg PO QAM JOHNATHAN; Protocol Last Admin: 11/13/17 08:30 Dose: 10 mg Heparin Sodium (Porcine) (Heparin Vial(*)) 5,000 units SUBCUT Q8HR [facility] Last Admin: 11/13/17 15:47 Dose: 5,000 units Sodium Chloride (Ns 0.9% 1000 Ml*) 1,000 mls @ 100 mls/hr IV PER RATE [facility] Last Admin: 11/13/17 03:17 Dose: 100 mls/hr Lovastatin (Mevacor (Nf)) 20 mg PO QPM [facility] Last Admin: 11/12/17 17:58 Dose: 20 mg Magnesium Hydroxide (Milk Of Magnesia Liq*) 30 ml PO Q4H PRN PRN Reason: CONSTIPATION Morphine Sulfate (Morphine Vial*) 2 mg IV Q1H PRN PRN Reason: PAIN Ondansetron HCl (Zofran Inj*) 4 mg IV Q4H PRN PRN Reason: NAUSEA/VOMITING Oxycodone/Acetaminophen (Percocet 5/325 Tab*) 1 tab PO Q4H PRN PRN Reason: Pain Oxygen Devices in Use Now: None Appearance: NAD Eyes: No Scleral Icterus, PERRLA Ears/Nose/Mouth/Throat: NL Teeth, Lips, Gums, Clear Oropharnyx Neck: NL Appearance and Movements; NL JVP, Trachea Midline Respiratory: Symmetrical Chest Expansion and Respiratory Effort, Clear to Auscultation Cardiovascular: NL Sounds; No Murmurs; No JVD, RRR Abdominal: NL Sounds; No Tenderness; No Distention Lymphatic: No Cervical Adenopathy Extremities: No Edema Skin: No Rash or Ulcers Neurological: Alert and Oriented x 3 Result Diagrams: 11/13/17 06:42 11/13/17 06:42 Additional Lab and Data: Lab Results 11/12/17 11/12/17 11/12/17 Range/Units 11:03 11:03 11:03 WBC 8.4 (3.5-10.8) 10^3/ul RBC 3.85 L (4.00-5.40) 10^6/ul Hgb 13.2 (12.0-16.0) g/dl Hct 38 (35-47) % MCV 98 H (80-97) fL MCH 34 H (27-31) pg MCHC 35 (31-36) g/dl RDW 13 (10.5-15) % Plt Count 219 (150-450) 10^3/ul MPV 7.7 (7.4-10.4) um3 Neut % (Auto) 82.7 (38-83) % Lymph % (Auto) 9.5 L (25-47) % Kimball % (Auto) 6.4 (0-7) % Eos % (Auto) 0.9 (0-6) % Baso % (Auto) 0.5 (0-2) % Absolute Neuts (auto) 7.0 (1.5-7.7) 10^3/ul Absolute Lymphs (auto) 0.8 L (1.0-4.8) 10^3/ul Absolute Monos (auto) 0.5 (0-0.8) 10^3/ul Absolute Eos (auto) 0.1 (0-0.6) 10^3/ul Absolute Basos (auto) 0 (0-0.2) 10^3/ul Absolute Nucleated RBC 0 10^3/ul Nucleated RBC % 0 INR (Anticoag Therapy) 0.96 (0.77-1.02) APTT 25.2 L (26.0-36.3) seconds Sodium 140 (135-145) mmol/L Potassium 3.9 (3.5-5.0) mmol/L Chloride 105 (101-111) mmol/L Carbon Dioxide 29 (22-32) mmol/L Anion Gap 6 (2-11) mmol/L BUN 20 (6-24) mg/dL Creatinine 0.83 (0.51-0.95) mg/dL Est GFR ( Amer) 80.4 (>60) Est GFR (Non-Af Amer) 66.5 (>60) BUN/Creatinine Ratio 24.1 H (8-20) Glucose 107 H (70-100) mg/dL Calcium 9.5 (8.6-10.3) mg/dL Total Bilirubin 0.70 (0.2-1.0) mg/dL AST 24 (13-39) U/L ALT 19 (7-52) U/L Alkaline Phosphatase 44 (34-104) U/L Troponin I 0.00 (<0.04) ng/mL Total Protein 6.4 (6.4-8.9) g/dL Albumin 4.0 (3.2-5.2) g/dL Globulin 2.4 (2-4) g/dL Albumin/Globulin Ratio 1.7 (1-3) Lipase 8940 H (11.0-82.0) U/L Urine Color Urine Appearance Urine pH (5-9) Ur Specific [place] (1.010-1.030) Urine Protein (Negative) Urine Ketones (Negative) Urine Blood (Negative) Urine Nitrate (Negative) Urine Bilirubin (Negative) Urine Urobilinogen (Negative) Ur Leukocyte Esterase (Negative) Urine Glucose (Negative) 11/12/17 Range/Units 12:46 WBC (3.5-10.8) 10^3/ul RBC (4.00-5.40) 10^6/ul Hgb (12.0-16.0) g/dl Hct (35-47) % MCV (80-97) fL MCH (27-31) pg MCHC (31-36) g/dl RDW (10.5-15) % Plt Count (150-450) 10^3/ul MPV (7.4-10.4) um3 Neut % (Auto) (38-83) % Lymph % (Auto) (25-47) % Kimball % (Auto) (0-7) % Eos % (Auto) (0-6) % Baso % (Auto) (0-2) % Absolute Neuts (auto) (1.5-7.7) 10^3/ul Absolute Lymphs (auto) (1.0-4.8) 10^3/ul Absolute Monos (auto) (0-0.8) 10^3/ul Absolute Eos (auto) (0-0.6) 10^3/ul Absolute Basos (auto) (0-0.2) 10^3/ul Absolute Nucleated RBC 10^3/ul Nucleated RBC % INR (Anticoag Therapy) (0.77-1.02) APTT (26.0-36.3) seconds Sodium (135-145) mmol/L Potassium (3.5-5.0) mmol/L Chloride (101-111) mmol/L Carbon Dioxide (22-32) mmol/L Anion Gap (2-11) mmol/L BUN (6-24) mg/dL Creatinine (0.51-0.95) mg/dL Est GFR ( Amer) (>60) Est GFR (Non-Af Amer) (>60) BUN/Creatinine Ratio (8-20) Glucose (70-100) mg/dL Calcium (8.6-10.3) mg/dL Total Bilirubin (0.2-1.0) mg/dL AST (13-39) U/L ALT (7-52) U/L Alkaline Phosphatase (34-104) U/L Troponin I (<0.04) ng/mL Total Protein (6.4-8.9) g/dL Albumin (3.2-5.2) g/dL Globulin (2-4) g/dL Albumin/Globulin Ratio (1-3) Lipase (11.0-82.0) U/L Urine Color Straw Urine Appearance Clear Urine pH 8.0 (5-9) Ur Specific [place] 1.004 L (1.010-1.030) Urine Protein Negative (Negative) Urine Ketones Negative (Negative) Urine Blood Negative (Negative) Urine Nitrate Negative (Negative) Urine Bilirubin Negative (Negative) Urine Urobilinogen Negative (Negative) Ur Leukocyte Esterase Negative (Negative) Urine Glucose Negative (Negative) Assess/Plan/Problems-Billing Assessment: 77 yo F p/w abdominal pain and elevated lipase treated for pancreatitis - Patient Problems (1) Pancreatitis Comment: c/w fluids overnight trial diet again in AM would benefit from cholecystectomy. Would have to wait until Thursday (at least) for surgery. Pt to call and follow up with surgery after discharge Triglycerides in AM Home if pain free (2) Hyperlipidemia Comment: statin fasting lipids in AM (3) DVT prophylaxis Comment: HSQ Status and Disposition: home tomorrow if pain free and tolerating food
[2017-11-13] MEDS: LOVASTATIN 10 MG PO SCH (18:24)
[2017-11-14] MEDS: NS 0.9% 1000 ML* 1,000 ML IV SCH (05:34)
[2017-11-14] MEDS: Heparin VIAL(*) 5000 UNITS/ML VIAL (FIVE THOUSAND) SUBCUT SCH (05:35)
[2017-11-14] MEDS: Cetirizine* 10 MG TAB PO SCH (08:41)
[2017-11-14 08:53] LABS: EGFR Non-African American 77.1 (>60)
[2017-11-14 11:55] VITALS: BP 113/53
--- NOTE | 2017-11-14 12:07 | DS ---
CC: Dr. Arizmendi; Dr. Brambila; Dr. Rose * DISCHARGE SUMMARY: DATE OF ADMISSION: 11/12/17 DATE OF DISCHARGE: 11/14/17 PRIMARY CARE PROVIDER: Dr. Arizmendi. DISCHARGE DIAGNOSIS: Acute pancreatitis, possibly related to a past gallbladder stone. SECONDARY DIAGNOSES: 1. Hyperlipidemia. 2. Seasonal allergies. DISCHARGE MEDICATIONS: Unchanged from admission and include: 1. Vitamin E 200 units daily. 2. Garlic 1 tablet daily. 3. Vitamin D3 of 1000 units daily. 4. Calcium carbonate 500 mg daily. 5. Lovastatin 20 mg q.p.m. 6. Clarinex 5 mg q.a.m. p.r.n. LABORATORY DATA AND STUDIES PERFORMED DURING THE HOSPITAL STAY: Include: On , sodium of 141, potassium 3.7, chloride 110, carbon dioxide 23, BUN 10, creatinine 0.73. Liver function tests unremarkable. Lipase of 77. On 11/13/17 , white blood cell count of 4.8, hemoglobin 12.4, hematocrit 36 and platelets of 206,000. The patient's lipase at admission was 8940. Portable chest x-ray obtained on 11/12/17, impression: "Stigmata for obstructive lung disease. No acute pulmonary or cardiac process evident." Gallbladder ultrasound on 11/12/17, impression: "0.5 cm maximum dimension probable cholesterol or inflammatory polyps. Gallbladder polyps of 0.6 cm or smaller have extremely low risk of malignancy and typically do not warrant followup. On occasion, polyps may actually represent small gallstones adherent to the gallbladder wall at surgery." CT of abdomen and pelvis obtained on the same day, impression: "No acute CT findings, no mass or inflammatory changes involving appendix. Probable hepatic cyst or hemangiomas. Probable gallbladder polyps. Scattered diverticula without CT findings of acute diverticulitis." MRCP obtained on 11/13/17, impression: "Negative for biliary dilatation or bilateral biliary duct stones. Distended gallbladder without wall thickening. Trace pericholecystic fluid. Suggestion of mild peripancreatic edema inferior to the pancreatic body tail junction, might reflect acute pancreatitis. No loculated peripancreatic fluid collection evident." CONSULTATIONS DURING THE HOSPITAL STAY: Dr. Brambila from Gastroenterology. HOSPITALIZATION COURSE: Pepper Talbert is a 77-year-old female who presented with acute pancreatitis to the hospital on 11/12/17. She was treated conservatively and medically with restriction of p.o. intake. Dr. Brambila saw the patient in consultation and the suspicion is that the patient had acute pancreatitis due to possibly passing a gallbladder stone and the CT of the abdomen showed possibility of gallbladder wall polyp that was 0.5 cm which did not really warrant any further exploration. The patient got dramatically better over the couple of days of her hospital stay. By the time of discharge, the patient's lipase was down to 77. She is tolerating low fat diet without any problems and she has not had any recurrence of abdominal pain. She is recommended to follow up with the primary care provider in 4 to 7 days. The patient is also recommended to follow up with Dr. Rose from Surgery in approximately 1 to 2 weeks to discuss further possibility of elective cholecystectomy. Dr. Rose was also curbsided about that prior to the patient' s discharge. PHYSICAL EXAM AT THE TIME OF DISCHARGE: Blood pressure 121/73, heart rate of 70 and regular, respiratory rate of 16, oxygen saturation 96% on room air, temperature 98.0. General: The patient is a very pleasant 77-year-old female who is in no acute distress, alert, awake and oriented x3. HEENT: Head atraumatic, normocephalic. Eyes: Pupils equal, round, and reactive to light and accommodation. Oropharynx clear. Mucosa moist. Neck: Supple. No JVD. No bruits bilaterally. Cardiovascular: Regular rate and rhythm. No murmur. Respiratory: Clear to auscultation bilaterally. Abdomen: Soft, nontender. Bowel sounds present in all 4 quadrants. Extremities: There is no edema. Pulses +2 bilaterally. There is no clubbing or cyanosis. On neuro evaluation, speech clear. Cranial nerves II through XII grossly intact. Motor strength is 5/5 bilaterally. Please note that this is a short summary of the patient's hospitalization. Please refer to further medical records for details. TIME SPENT: Approximately 35 minutes were spent on the patient's discharge. [id number]/CPS #: [id number] MTDD
== END 2017-11-14 12:15 | disposition home or self-care (01) | DRG 440 ==
LOC: ED 10:22 → MED 15:42 → OBSVTOIN 11-13 10:00
PROVIDERS: ADMIT Internal Medicine; ATTEND Internal Medicine
DX: K85.10 Biliary acute pancreatitis without necrosis or infection (principal); E78.5 Hyperlipidemia, unspecified; J30.2 Other seasonal allergic rhinitis; K82.4 Cholesterolosis of gallbladder; J45.909 Unspecified asthma, uncomplicated; K57.90 Diverticulosis of intestine, part unspecified, without perforation or abscess without bleeding; Z91.018 Allergy to other foods; Z91.013 Allergy to seafood; Z87.891 Personal history of nicotine dependence; Z72.89 Other problems related to lifestyle
CPT/HCPCS: 36415; 71046; 74177; 74181; 76376; 76705; 80053; 81003; 82465; 83690; 84484; 85025; 85610; 85730; 93005; 99212; 99283; A9270-GY; G0378; G0463; J1644; Q9967

== ENCOUNTER 2017-12-31 06:17 | Day surgery (SDC) | payer MEDICARE ==
--- NOTE | 2017-12-22 03:41 | HP ---
CC: Dr. Keith Arizmendi; Dr. Juan Carlos Brambila * ADMISSION HISTORY AND PHYSICAL: DATE OF ADMISSION: 12/31/17 ATTENDING SURGEON: Dr. Celso Rose * (DICTATED BY ROSETTE SEGOVIA) CHIEF COMPLAINT: Gallstone pancreatitis. HISTORY OF PRESENT ILLNESS: This is a generally healthy 77-year-old female who experienced two attacks of upper abdominal pain on 11/12/17. She had associated nausea, bloating, and difficulty breathing. She presented to [facility] and was referred to the hospital ED. She was admitted for what appeared to be gallstone pancreatitis. Ultrasound at that time showed multiple small (less than 0.5 cm) echogenic structures within the gallbladder consistent with either polyps or adherent stones. Her liver function tests remained normal and her serum lipase normalized over the next 48 hours. MRCP was done on 11/13/17, showing no choledocholithiasis. The patient was referred to and seen by Dr. Rose on 12/08/17. He has reviewed her history and workup and recommended surgery. The patient understands the indications, risks, benefits and alternatives as well as the expected perioperative course and would like to proceed as scheduled with laparoscopic cholecystectomy. The patient has not experienced any similar symptoms since discharge from the hospital. Her family history is positive for gallbladder disease in her brother. PAST MEDICAL HISTORY: Hyperlipidemia, seasonal allergies. PAST SURGICAL HISTORY: Previous surgeries include D and C and pinning of right great toe. CURRENT MEDICATIONS: 1. Lovastatin 20 mg once daily. 2. Desloratadine 5 mg once daily. 3. Calcium carbonate 500 mg once daily. 4. Vitamin D 1000 IU once daily. 5. Vitamin E 180 units once daily. 6. Garlic once daily. (The patient instructed to hold for 3 days preoperatively ). 7. Potassium gluconate 550 mg once daily. 8. Albuterol MDI p.r.n. (has not required recently). ALLERGIES: Drug allergies none known. She does have a local reaction to LATEX. FAMILY HISTORY: Positive for DVT in her mother. No family history problems with anesthesia or bleeding disorders. SOCIAL HISTORY: The patient lives with her daughter. She is a nonsmoker and currently drinks approximately one-half glass of wine 5 days per week (down from 1 full glass of wine 5 days per week prior to recent admission). She denies any other recreational drug use. REVIEW OF SYSTEMS: General: No recent constitutional symptoms or acute illnesses other than described in the HPI. Weight has been stable. HEENT: No recent problems or changes noted. Cardiovascular: No chest pain, palpitations , or history of murmur. Respiratory: No recent problems reported, specifically cough or shortness of breath. GI: As above per HPI. Last colonoscopy approximately 5 years ago with no recommended followup. : No problems reported. [employer] EQUIPMENT TENDER: No recent problems reported. Endocrine: No diabetes or thyroid dysfunction. Remainder of review of systems is negative. PHYSICAL EXAMINATION GENERAL: Well-nourished, well-developed female who appears younger than her stated age of 77. VITAL SIGNS: Height 5 feet 6 inches, weight 150 pounds, blood pressure 122/66, pulse 82, respirations 16. HEENT: Pupils equal, round, and reactive. EOMs intact. No conjunctival pallor. Oropharynx: Teeth in good repair. No intraoral lesions. NECK: No lymphadenopathy, thyromegaly, or masses. LUNGS: Clear to auscultation. No rales or wheezes. BREASTS: Not examined. HEART: Regular rate and rhythm. No murmur noted. ABDOMEN: Soft, nontender to palpation. No palpable masses, organomegaly. GENITALIA: Not done. RECTAL: Not done. BACK: No spinous process or CVA tenderness. EXTREMITIES: No edema. NEUROLOGICAL: Grossly intact. SKIN: Warm and dry. She does have a small 2 mm lesion along the lateral aspect of the nose, possibly from irritation from her eye glasses versus an early basal cell carcinoma. She will follow up with her primary care provider regarding this. No other suspicious rashes or lesions. IMPRESSION: Gallstone pancreatitis. PLAN: Laparoscopic cholecystectomy. ROSETTE SEGOVIA [id number]/[facility] #: [id number] MARIA ISABEL
[~2017-12-31 06:17] MED LIST: Buffered Lidocaine 0.9% SYRIN* 5 ML/SYR SYRINGE INTRADERM ONE; Dexamethasone TAB* 4 MG PO ONE; Famotidine IV* 10 MG/ML 2 ML (20 mg) IV ONE; Ondansetron TAB* 4 MG PO ONE
[2017-12-31] MEDS ORDERED: fentaNYL* 50 MCG/ML 2 ML VIAL (100 MCG VIAL) IV PRN (06:26)
[2017-12-31] MEDS ORDERED: Naloxone* 0.4 MG/ML 1 ML VIAL IV PRN (06:26)
[2017-12-31] MEDS ORDERED: Morphine INJ* 2 MG/ML 1 ML SYRINGE (TWO MG - NEW SYRINGE VERSION) IV PRN (06:26)
[2017-12-31] MEDS ORDERED: oxyCODONE/Acetamin 5/325 MG* TAB PO PRN (06:26)
[2017-12-31] MEDS ORDERED: DiMENhydriNATE IV* 50 MG/ML VIAL IV PUSH PRN (06:26)
[2017-12-31] MEDS ORDERED: PROCHLORPERAZINE INJ 5 MG/ML 2 ML VIAL IV PRN (06:26)
[2017-12-31] MEDS ORDERED: Famotidine IV* 10 MG/ML 2 ML (20 mg) ONE (06:45)
[2017-12-31] MEDS ORDERED: ceFAZolin 2 GM PREMIX (*) 2 GM/50 ML BAG IVPB ONE (06:45)
[2017-12-31] MEDS ORDERED: Ondansetron ODT TAB* 4 MG ONE (06:45)
[2017-12-31] MEDS ORDERED: Dexamethasone TAB* 4 MG ONE ×2 (06:45→06:46)
[2017-12-31] MEDS ORDERED: ROPIVACAINE 5 MG/ML 30 ML BTL (0.5%) ONE (07:08)
[2017-12-31] MEDS ORDERED: Atracurium* 10 MG/ML 10 ML VIAL ONE (07:14)
[2017-12-31] MEDS ORDERED: KETAMINE HCL* 50 MG/ML 10 ML VIAL ONE (07:14)
[2017-12-31] MEDS ORDERED: Midazolam* 1 MG/ML 2 ML VIAL (2 MG) ONE (07:14)
[2017-12-31] MEDS ORDERED: fentaNYL* 50 MCG/ML 2 ML VIAL (100 MCG VIAL) ONE (07:14)
[2017-12-31] MEDS ORDERED: PROCHLORPERAZINE INJ 5 MG/ML 2 ML VIAL ONE (08:09)
[2017-12-31] MEDS ORDERED: Propofol* 10 MG/ML 20 ML BTL IV PUSH ONE (08:09)
[2017-12-31] MEDS ORDERED: Ketorolac INJ* 30 MG/ML 1 ML VIAL ONE (08:09)
[2017-12-31] MEDS ORDERED: Glycopyrrolate IV* 0.2 MG/ML 1 ML VIAL ONE (08:09)
[2017-12-31] MEDS ORDERED: Neostigmine Methylsulfate* 1 MG/ML 10 ML VIAL (1 mg/ml) ONE (08:09)
[2017-12-31] MEDS ORDERED: Lidocaine 2% PF * 5 ML VIAL ONE (08:10)
[2017-12-31] MEDS ORDERED: Phenylephrine INJ* 10 MG/ML 1 ML VIAL (10 MG) ONE (08:10)
[2017-12-31] MEDS ORDERED: EPHEDrine (Pressors)* 50 MG/ML VIAL ONE (08:10)
--- NOTE | 2017-12-31 08:53 | OP ---
Operative Report - Blank - Operative Report Date of Operation: 12/31/17 Note: Brief Operative Note Preoperative Dx: Biliary pancreatitis. Postoperative Dx: Same. Procedure: Laparoscopic cholecystectomy. Anesthesia: GET. Surgeon: Rose. Assist: ROSETTE Gabriel and JAGDISH Goode. EBL: Less than 50 ml. Specimen: Gallbladder. Fluids: 1300 LR. Drains: None. Findings: Dictated.
[2017-12-31 10:34] VITALS: BP 103/57
[2017-12-31] MEDS ORDERED: Acetaminophen TAB* 325 MG ONE (10:51)
--- NOTE | 2018-01-01 01:47 | OP ---
CC: Dr. Arizmendi; Dr. Brambila OPERATIVE REPORT: DATE OF OPERATION: 12/31/17 DATE OF : 38 SURGEON: Dr. Rose. [employer] SALES REPRESENTATIVE: Nery. ANESTHESIOLOGIST: Dr. Quiroga. ANESTHESIA: General anesthetic, local infiltration by the surgeon. PRE-OP DIAGNOSIS: Gallstone pancreatitis. POST-OP DIAGNOSIS: Gallstone pancreatitis. OPERATIVE PROCEDURE: Laparoscopic cholecystectomy. DESCRIPTION OF PROCEDURE: The patient was supine on the operative table. After adequate general ane sthetic, compression stockings, Manpreet Hugger warmer, and intravenous antibiotics, the abdomen was prep ped with antiseptic and draped in a sterile fashion. A small umbilical incision was created. Blunt port cannula was placed. Insufflation was carried out with carbon dioxide. Additional cannulae, 12- mm subxiphoid and 5-mm right upper quadrant, right anterior axillary line were placed through small stab wounds under direct vision. Gallbladder was tented upward and areola tissue was taken down with the cystic duct and cystic artery, which were readily identified and clipped and divided. Gallbladd er was taken off the liver bed using electrocautery. Hemostasis was excellent. There was some bleed ing from the epigastric cannula site and this was controlled using figure-of- eight sutures of 0 Vicr yl using the Endoclose device. The blood was irrigated out. Everything was in good condition. The c annulae were removed. Pneumoperitoneum allowed to escape. Umbilical fascia was closed with 0 Vicryl , skin with 5-0 Vicryl followed by Steri-Strips. She tolerated the procedure well, was awakened, ext ubated, and brought to Recovery in good condition. No complications. No drains. Pathologic specime n is gallbladder. Sponge and instrument counts correct. Estimated blood loss 30 mL. [id number]/[facility] #: [id number]
== END 2017-12-31 11:09 | disposition home or self-care (01) ==
LOC: OR 06:17
PROVIDERS: ATTEND Surgery
DX: K85.10 Biliary acute pancreatitis without necrosis or infection (principal); K81.1 Chronic cholecystitis; E78.5 Hyperlipidemia, unspecified; J30.2 Other seasonal allergic rhinitis
CPT/HCPCS: 88304; A9270-GY; J0690; J0780; J1885; J2250; J2704; J2710; J2795; J3010; J8540